=== PATIENT | male | born 1975 | race Caucasian/White ===

== ENCOUNTER 2017-04-28 17:06 | Emergency (ER) | payer SELFPAY ==
[~2017-04-28] VITALS: Ht 190.5 cm; Wt 87.0 kg
[2017-04-28 17:14] VITALS: BP 107/62; PULSE 97; RESP 18; TEMP 98.1; O2SAT 99
[2017-04-28] MEDS ORDERED: XANA1TAB2 PO (18:30)
[2017-04-28] MEDS ORDERED: SOMA350T PO (18:30)
[2017-04-28 18:59] VITALS: BP 107/71; PULSE 84; RESP 18; O2SAT 99
[2017-04-28 19:13] LABS: BLOOD, URINE LARGE (NEG); GLUCOSE,URINE NEG (NEG); KETONE, URINE NEG (NEG); NITRITE,URINE NEG (NEG); PH, URINE 5.5 (5.0-8.5)
[2017-04-28] MEDS ORDERED: ONDANSETRON HCL 4 MG/2 ML VIAL IVP ONE (19:15)
[2017-04-28] MEDS ORDERED: MORPHINE SULFATE 8 MG/ML INJ IV PUSH ONE (19:15)
[2017-04-28] MEDS ORDERED: SODIUM CHLORIDE 0.9% FLUSH 10 ML FLUSH IV FLUSH PRN (19:15)
--- NOTE | 2017-04-28 19:17 | PD ---
HPI Chief Complaint: Flank/Kidney Pain Time Seen by Provider: 19:05 Travel History International Travel<30 days: No Contact w/Intl Traveler<30days: No Traveled to known affect area: No History of Present Illness HPI Patient is a 42 year old male states has a history of kidney stones and states feels like he is passing one now. Patient states right flank pain, sudden onset 2 hours ago, severe and constant. followed by nausea and nb/nb emesis. Patient states has allergy to toradol causing hives and he is adamantly refusing toradol. Also endorses hematuria. He states the pain is severe, 10 out of 10. PFSH Past Medical History Anxiety: Yes Diminished Hearing: No Neurologic: Yes (back spasm) Immunizations Current: Yes Tetanus Vaccination: < 5 Years Influenza Vaccination: No Social History Alcohol Use: Yes (occ) Tobacco Use: Yes (3 cigs) Substance Use: No Allergies-Medications (Allergen,Severity, Reaction): Coded Allergies: ketorolac (Verified Allergy, Intermediate, Nausea/Vomiting, 04/28/17) tramadol (Verified Allergy, Intermediate, Headache, 04/28/17) Reported Meds & Prescriptions Reported Meds & Active Scripts Active Reported Soma (Carisoprodol) 350 Mg Tab 350 Mg PO TID PRN Xanax (Alprazolam) 1 Mg Tab 1 Mg PO BID PRN Review of Systems Except as stated in HPI: all other systems reviewed are Neg Physical Exam Narrative GENERAL: WD/WN moaning in pain. SKIN: Warm and dry. HEAD: Atraumatic. Normocephalic. EYES: Pupils equal and round. No scleral icterus. No injection or drainage. ENT: No nasal bleeding or discharge. Mucous membranes pink and moist. NECK: Trachea midline. No JVD. CARDIOVASCULAR: Regular rate and rhythm. RESPIRATORY: No accessory muscle use. Clear to auscultation. Breath sounds equal bilaterally. GASTROINTESTINAL: Abdomen soft, non-tender, nondistended. Hepatic and splenic margins not palpable. Mild CVA tenderness on right. MUSCULOSKELETAL: Extremities without clubbing, cyanosis, or edema. No obvious deformities. NEUROLOGICAL: Awake and alert. No obvious cranial nerve deficits. Motor grossly within normal limits. Five out of 5 muscle strength in the arms and legs. Normal speech. PSYCHIATRIC: Appropriate mood and affect; insight and judgment normal. Data Data Last Documented VS Vital Signs Date Time Temp Pulse Resp B/P (MAP) Pulse Ox O2 Delivery O2 Flow Rate FiO2 04/28/17 19:26 18 04/28/17 18:59 84 107/71 (83) 99 Room Air 04/28/17 17:14 98.1 Orders Orders Urinalysis - C+S If Indicated (04/28/17 17:08) Basic Metabolic Panel (Bmp) (04/28/17 19:13) Complete Blood Count With Diff (04/28/17 19:13) Ct Abd/Pel W/O Iv Contrast (04/28/17 19:13) Iv Access Insert/Monitor (04/28/17 19:13) Ecg Monitoring (04/28/17 19:13) Oximetry (04/28/17 19:13) Ondansetron Inj (Zofran Inj) (04/28/17 19:15) Sodium Chloride 0.9% Flush (Ns Flush) (04/28/17 19:15) Morphine Inj (Morphine Inj) (04/28/17 19:15) Ed Discharge Order (04/28/17 20:25) Labs Laboratory Tests Test 04/28/17 18:30 04/28/17 19:27 04/28/17 19:51 Urine Color YELLOW Urine Turbidity SLIGHT Urine pH 5.5 Urine Specific [place] 1.011 Urine Protein NEG mg/dL Urine Glucose (UA) NEG mg/dL Urine Ketones NEG mg/dL Urine Occult Blood LARGE Urine Nitrite NEG Urine Bilirubin NEG Urine Leukocyte Esterase NEG Urine RBC 50-99 /hpf Urine Squamous Epithelial Cells 0-5 /hpf Urine Mucus OCC /lpf Microscopic Urinalysis Comment CULT NOT INDICATED White Blood Count 9.6 TH/MM3 Red Blood Count 5.19 MIL/MM3 Hemoglobin 16.0 GM/DL Hematocrit 48.8 % Mean Corpuscular Volume 94.0 FL Mean Corpuscular Hemoglobin 30.8 PG Mean Corpuscular Hemoglobin Concent 32.8 % Red Cell Distribution Width 12.3 % Platelet Count 180 TH/MM3 Mean Platelet Volume 9.1 FL Neutrophils (%) (Auto) 64.0 % Lymphocytes (%) (Auto) 27.7 % Monocytes (%) (Auto) 3.6 % Eosinophils (%) (Auto) 3.4 % Basophils (%) (Auto) 1.3 % Neutrophils # (Auto) 6.2 TH/MM3 Lymphocytes # (Auto) 2.7 TH/MM3 Monocytes # (Auto) 0.3 TH/MM3 Eosinophils # (Auto) 0.3 TH/MM3 Basophils # (Auto) 0.1 TH/MM3 CBC Comment DIFF FINAL Differential Comment MDM Medical Decision Making Medical Screen Exam Complete: Yes Emergency Medical Condition: Yes Differential Diagnosis Kidney stone, nephrolithiasis, acute kidney injury, urinary tract infection, acute abdomen seems unlikely. Narrative Course Patient is a 42-year-old male roomed in the emergency department for evaluation of flank pain. He does have some hematuria but CBC is completely within normal limits. He states pain is 10 out of 10 and he was given 5 mg of morphine IV. This states that his pain is now a 9 out of 10. He is requesting additional pain medication. Given that he is still painful after 5 mg of morphine I highly recommended that given a CAT scan to confirm diagnosis prior to proceeding and to rule out any other life-threatening pathology. The patient states she's had multiple CAT scans in the [facility] where he is initially from was told that repeat CAT scans to carry risk of cancer in the future. I discussed that that is a real concern but at this time given his pain is severe I recommended that he had a CAT scan to rule out life- threatening pathology. The patient adamantly refused. The patient is allergic to Toradol and tramadol. Patient's E force was clean. At this time the patient expressed his desire to leave AGAINST MEDICAL ADVICE. I discussed with him that if he leaves AGAINST MEDICAL ADVICE and acute like 30 pathology is present his abdomen this could leave him with kidney problems and permanent disability. He verbalized understanding and still wishes sign out. He was given discharge papers instructions to follow-up with urology. He was welcome to return to the emergency department should he require further evaluation the future. He ambulated from the emergency Department in absolutely no distress. Diagnosis Primary Impression: Right flank pain Referrals: Sudhakar Chapman MD Disposition: 07 AGAINST MEDICAL ADVICE Condition: Stable Usama Dorantes MD Apr 28, 2017 19:17
[2017-04-28 19:26] VITALS: RESP 18
[2017-04-28 19:35] LABS: AUTOMATED NEUTROPHIL # 6.2 TH/MM3 (1.8-7.7); BASOPHIL # 0.1 TH/MM3 (0-0.2); BASOPHIL % 1.3 % (0.0-2.0); EOSINOPHIL # 0.3 TH/MM3 (0-0.4); EOSINOPHIL % 3.4 % (0.0-4.0); HEMATOCRIT 48.8 % (39.0-51.0); HEMO FLAGS DIFF FINAL; LYMPH % 27.7 % (9.0-44.0); LYMPHOCYTE # 2.7 TH/MM3 (1.0-4.8); MEAN CORPUSCULAR HEMOGLOBIN 30.8 PG (27.0-34.0); MEAN CORPUSCULAR HGB CONC 32.8 % (32.0-36.0); MONO % 3.6 % (0.0-8.0); PLATELET COUNT 180 TH/MM3 (150-450); RED BLOOD COUNT 5.19 MIL/MM3 (4.50-5.90); RED CELL DISTRIBUTION WIDTH 12.3 % (11.6-17.2); WHITE BLOOD COUNT 9.6 TH/MM3 (4.0-11.0)
[2017-04-28 19:38] LABS: URINE COLOR YELLOW (YELLW/STRAW)
[2017-04-28 19:39] LABS: MUCUS URINE OCC /lpf (OCC); SQUAMOUS EPITHELIAL CELL URINE 0-5 /hpf (0-5)
[2017-04-28 19:40] LABS: COMMENT (UR) CULT NOT INDICATED; CULTURE IF INDICATED CULT NOT INDICATED
[2017-04-28 20:11] LABS: BICARBONATE 24.9 MEQ/L (21.0-32.0)
[2017-04-28 20:28] LABS: POTASSIUM 4.2 MEQ/L (3.5-5.1)
== END 2017-04-28 20:27 | disposition left against medical advice (07) ==
LOC: PHED 17:06
DX: R10.9 Unspecified abdominal pain (principal); R31.9 Hematuria, unspecified; Z87.442 Personal history of urinary calculi
CPT/HCPCS: 80048; 81001; 85025; 96374; 96375; 99284; J2270; J2405